=== PATIENT | male | born 1995 | race American Indian/Alaskan Native ===

== ENCOUNTER 2020-04-01 14:15 | Emergency (ER) | payer MEDICAID ==
[2020-04-01] MEDS ORDERED: cefTRIAXone 1,000 MG, Lidocaine 1% 2.1 ML IM ONE ×2 (14:39)
[2020-04-01] MEDS ORDERED: Ketorolac 60 MG/2 ML SDV IM ONE (14:40)
[2020-04-01] MEDS ORDERED: cefTRIAXone 1 GM, Lidocaine 1% 2.1 ML IM ONE ×2 (14:45)
--- NOTE | 2020-04-01 14:51 | EDM.PDOC ---
ED HPI GENERAL MEDICAL PROBLEM - General Chief Complaint: Skin Complaint Stated Complaint: OPEN SORE LEFT UPPER LEG Time Seen by Provider: 04/01/20 14:24 Source of Information: Reports: Patient, RN Notes Reviewed History Limitations: Reports: No Limitations - History of Present Illness INITIAL COMMENTS - FREE TEXT/NARRATIVE: Patient is a 24-year-old male who presents to the ED for evaluation of a draining wound on his left upper thigh. Patient notes that he was not sure if he may be pulled a muscle a week ago, but he then developed a red sore/tender area to his left upper thigh, he states that this "popped", and he now he has a draining open wound to the area. He states it did drain quite a bit of pus type drainage initially and is still draining. He states it started draining a few days ago. Patient is nontoxic in appearance, his temperature is 97.7 F. He denies any fevers or chills, cough or shortness of breath, or any other sick- like symptoms at this time. He states is very tender to the touch but is not taking anything like Tylenol ibuprofen prior to arrival to the ER. Left Upper Leg Pain Score (Numeric/FACES): 8 - Related Data Allergies Allergy/AdvReac Type Severity Reaction Status Date / Time No Known Allergies Allergy Verified 04/01/20 14:25 Home Meds: Home Meds Doxycycline [Vibramycin] 100 mg PO BID 10 Days #20 tab 04/01/20 [Rx] Ibuprofen 600 mg PO Q6H #30 tablet 04/01/20 [Rx] Social & Family History - Family History Family Medical History: Noncontributory - Tobacco Use Tobacco Use Status *Q: Current Every Day Tobacco User Years of Tobacco use: 10 Packs/Tins Daily: 1 - Caffeine Use Caffeine Use: Reports: Coffee, Energy Drinks, Soda, Tea - Recreational Drug Use Recreational Drug Use: No ED ROS GENERAL - Review of Systems Review Of Systems: Comprehensive ROS is negative, except as noted in HPI. ED EXAM, SKIN/RASH Exam: See Below Exam Limited By: No Limitations General Appearance: Alert, WD/WN, No Apparent Distress Respiratory/Chest: No Respiratory Distress, Lungs Clear, Normal Breath Sounds, No Accessory Muscle Use, Chest Non-Tender Cardiovascular: Normal Peripheral Pulses, Regular Rate, Rhythm, No Murmur Extremities: Normal Range of Motion, Normal Capillary Refill Neurological: Alert, Oriented, Normal Cognition, No Motor/Sensory Deficits Psychiatric: Normal Affect, Normal Mood Skin: Warm, Dry, Normal Color, Erythema (to the left upper thigh, the open wound is about dime size in diameter and is about 0.5-1cm deep. The area surrounding the wound is tender to the touch and slightly reddened; some purulent drainage noted.) Associated features: Warmth, Tenderness, Induration, Inflammation Course - Vital Signs Last Recorded V/S: Last Vital Signs Temp 97.7 F 04/01/20 14:22 Pulse 87 04/01/20 14:22 Resp 18 04/01/20 14:22 BP 129/82 04/01/20 14:22 Pulse Ox 100 04/01/20 14:22 - Orders/Labs/Meds Meds: Medications Discontinued Medications Generic Name Dose Route Start Last Admin Trade Name Freq PRN Reason Stop Dose Admin Ceftriaxone Sodium 1 gm/ 0 gm 04/01/20 14:45 Lidocaine HCl 2.1 ml IM 04/01/20 14:46 ONETIME ONE Ketorolac Tromethamine 60 mg 04/01/20 14:40 Toradol IM 04/01/20 14:41 ONETIME ONE - Re-Assessments/Exams Free Text/Narrative Re-Assessment/Exam: 04/01/20 14:51 Patient presents to the ED for evaluation of his draining wound on his leg. I have ordered 1 g IM Rocephin, along with 60 mg IM Toradol for initial management. Patient be sent home with oral doxycycline x10 days, and some ibuprofen tablets for pain management. I did go over the other general recommendations. This is likely given take a long time to heal, I did call Dr. Shah in consultation, the patient will follow up with him in roughly 1 week's time for supervision of wound management. Dr. Shah thought that this plan was acceptable. Departure - Departure Time of Disposition: 14:52 Disposition: Home, Self-Care 01 Condition: Good Clinical Impression: Cellulitis and abscess of left leg - Discharge Information *PRESCRIPTION DRUG MONITORING PROGRAM REVIEWED*: No *COPY OF PRESCRIPTION DRUG MONITORING REPORT IN PATIENT VICTORIANO: No Prescriptions: Ibuprofen 600 mg PO Q6H #30 tablet Doxycycline [Vibramycin] 100 mg PO BID 10 Days #20 tab Instructions: Skin Abscess, [id number] Referrals: PCP,None [Primary Care Provider] - Additional Instructions: You were evaluated in the ER today for your open draining wound on your left leg. It does appear that you have a skin abscess. Your skin was marked around the borders of the redness, if this redness should extend 2 finger widths past this initial taqueria, recommend you seek care for re-evaluation. You were given an antibiotic in the ER, to help start to provide you coverage. You have been started on oral antibiotics as well, doxycycline 100 mg twice daily x10 days. Please start your dose tonight for further management. Please take as prescribed until the course is done or told otherwise by different provider. Please note that this antibiotic will take at least 48 hours to start working appropriately. You may try to use heat/ice packs to the area to help reduce pain/swelling. You may take 500 mg Tylenol or 600 mg ibuprofen every 6 hours as needed for further pain relief. Do not exceed 4000 mg Tylenol or 3200 mg ibuprofen in a 24-hour time span. Have been referred to a general surgeon for wound management, to make sure that this is healing appropriately. Dr. Shah, he is located at the [facility], his clinic number is [phone]. Please call tomorrow to his office to obtain an appointment with him in 1 week roughly. Please keep the area clean and dry, you may cleanse the area with soap and water, and place bandages as appropriate to allow the wound to keep draining. Please return to the ER at any time if your symptoms change or worsen. Sepsis Event Note (ED) - Evaluation Sepsis Screening Result: No Definite Risk - Focused Exam Vital Signs: Vital Signs Temp Pulse Resp BP Pulse Ox 04/01/20 14:22 97.7 F 87 18 129/82 100
== END 2020-04-01 15:55 | disposition home or self-care (01) ==
LOC: JD.ED 14:15
DX: L03.116 Cellulitis of left lower limb (principal); L02.416 Cutaneous abscess of left lower limb; F17.210 Nicotine dependence, cigarettes, uncomplicated
CPT/HCPCS: 96372; 99283; J0696; J1885; J2001; 99284